=== PATIENT | male | born 1935 | race Hispanic/Latino ===

== ENCOUNTER 2021-11-06 19:18 | Emergency (ER) | payer MEDICARE, OTHER ==
[~2021-11-06] VITALS: Ht 162.6 cm; Wt 90.7 kg
[2021-11-06] MEDS ORDERED: ACETAMINOPHEN 325 MG TAB PO ONE (22:00)
[2021-11-06] MEDS ORDERED: ACETAMINOPHEN 325 MG TAB ONE (22:10)
== END 2021-11-06 22:34 | disposition home or self-care (01) ==
LOC: FSED 19:25
DX: R50.9 Fever, unspecified (principal); N39.0 Urinary tract infection, site not specified; Z20.822 Contact with and (suspected) exposure to COVID-19
CPT/HCPCS: 99282; U0002